=== PATIENT | female | born 1980 | race Two or more races ===

== ENCOUNTER 2023-02-08 10:03 | Emergency (ER) | payer OTHER ==
[2023-02-08 10:14] VITALS: BMI 34.0
[2023-02-08] MEDS ORDERED: METOCLOPRAMIDE HCL INJECTION 10 MG/2 ML VIAL IVPUSH ONE (10:53)
[2023-02-08] MEDS ORDERED: ACETAMINOPHEN 1000 MG/100 ML BAG IVPB ONE (10:54)
[2023-02-08] MEDS ORDERED: valACYclovir HCL 500 MG TABLET (FP) PO ONE (10:54)
[2023-02-08] MEDS ORDERED: ARTIFICIAL TEARS (POLYVINYL ALCOHOL) OPTH DROPS OD ONE (10:57)
[2023-02-08] MEDS ORDERED: predniSONE 20 MG TABLET (UD) PO ONE (10:58)
[2023-02-08] MEDS ORDERED: predniSONE 20 MG TABLET (UD) ONE (11:00)
[2023-02-08] MEDS ORDERED: ACETAMINOPHEN INJECTION 100 ML IVPB ONE (11:01)
[2023-02-08] MEDS ORDERED: METOCLOPRAMIDE HCL INJECTION 10 MG/2 ML VIAL ONE (11:01)
[2023-02-08] MEDS ORDERED: valACYclovir HCL 500 MG TABLET (FP) ONE (11:01)
[2023-02-08 11:34] LABS: INR 0.99 (0.83-1.09); PROTHROMBIN TIME (PATIENT) 11.5 SEC (9.7-13.0)
[2023-02-08 11:35] LABS: BASO % 0.6 % (0-2.0); HEMATOCRIT 36.2 % (32.4-45.2); HEMOGLOBIN 12.1 GM/dL (10.7-15.3); LYMPH % 23.2 % (8-40); MCH 27.8 pg (25.7-33.7); MCHC 33.3 g/dl (32.0-36.0); MEAN CELL VOLUME 83.4 fl (80-96); MEAN PLT VOLUME 10.5 fl (7.5-11.1); MONO % 4.6 % (3.8-10.2); NEUT % 69.6 % (42.8-82.8); PLATELET COUNT 280 10^3/uL (134-434); RBC 4.34 M/mm3 (3.60-5.2); RDW 14.6 % (11.6-15.6); WHITE BLOOD COUNT 6.7 K/mm3 (4.0-10.0)
[2023-02-08 11:37] LABS: ACTIVATED PTT 31.1 SECONDS (25.2-36.5)
[2023-02-08 11:56] LABS: POTASSIUM 4.2 mmol/L (3.5-5.1)
[2023-02-08 12:02] LABS: ALBUMIN 3.6 g/dl (3.4-5.0)
[2023-02-08 12:03] LABS: BLOOD UREA NITROGEN 8.5 mg/dL (7-18); CALCIUM 8.5 mg/dL (8.5-10.1)
[2023-02-08 12:07] LABS: CREATININE 0.6 mg/dL (0.55-1.3); TOT PROT 7.8 g/dl (6.4-8.2)
[2023-02-08 12:08] LABS: BILIRUBIN,TOTAL 0.3 mg/dL (0.2-1)
[2023-02-08 12:54] LABS: URINE APPEARANCE CLEAR; URINE BILIRUBIN NEGATIVE (NEGATIVE); URINE COLOR YELLOW; URINE GLUCOSE (UA) NEGATIVE (NEGATIVE); URINE KETONE NEGATIVE (NEGATIVE); URINE LEUK ESTERASE NEGATIVE (NEGATIVE); URINE NITRITE NEGATIVE (NEGATIVE); URINE PROTEIN NEGATIVE (NEGATIVE); URINE UROBILINOGEN 0.2 mg/dL (0.2-1.0)
[2023-02-08 13:06] VITALS: BP 123/71; PULSE 67; RESP 19; TEMP 97.9
== END 2023-02-08 14:32 | disposition home or self-care (01) ==
LOC: JER 10:03
PROC: 3E033GC Introduction of Other Therapeutic Substance into Peripheral Vein, Percutaneous Approach (ICD-10-PCS; principal; 2023-02-08)
PROC: 3E033NZ Introduction of Analgesics, Hypnotics, Sedatives into Peripheral Vein, Percutaneous Approach (ICD-10-PCS; 2023-02-08)
DX: R51.9 Headache, unspecified (principal); R29.810 Facial weakness; H92.01 Otalgia, right ear; G51.0 Bell's palsy
CPT/HCPCS: 36415; 70450-TC; 71045-TC-FY; 80053; 80061; 81003; 82550; 82962; 83036; 84484; 84703; 85025; 85610; 85730; 86618; 86850; 86900; 86901; 93005; 93010; 96374; 96375; 99285-25